=== PATIENT | male | born 1940 | race Caucasian/White ===

== ENCOUNTER → 2019-07-15 08:32 | Outpatient (CLI) | payer MEDICARE, SELFPAY ==
--- NOTE | 2019-07-15 | DI.MRI.S_ITS ---
PROCEDURE: MR BRAIN (IAC) WWO CON INDICATIONS: unspec sensorineural hearing loss TECHNIQUE: Noncontrast sagittal T1 spin echo, axial FLAIR, axial gradient echo, axial diffusion and ADC through the brain. Axial thin-slice 3D CISS, coronal TruFISP, axial T1 spin echo with fat saturation through the internal auditory canals. After the administration of contrast, thin slice axial and coronal T1 spin echo with fat saturation through the internal auditory canals, and axial T1 spin echo with fat saturation through the brain. COMPARISON: None. FINDINGS: Image quality: Excellent. Cerebellopontine angles: No cerebellopontine angle masses. Inner ear structures appear normally formed. No suspicious enhancement in the internal auditory canal or along the course of the 7th cranial nerve. CSF spaces: Ventricles are normal in size and shape. No extra-axial fluid collections. Basal cisterns are patent. Brain: No intracranial bleeds or mass effects. Kline-white matter interface is intact. No abnormal intracranial enhancement. Diffusion weighted images demonstrate no acute ischemic insults. Kline-white low volume loss can be seen. Scattered foci of T2 weighted hyperintensity are seen within the white matter, which are attributed to age appropriate chronic small vessel ischemic change. Brainstem appears normal. Normal intravascular flow voids are present. Skull and face: Calvarial marrow signal is normal. Orbits appear normal. Sinuses: Sinuses and mastoids are clear. IMPRESSION: No significant abnormality is seen. Specifically, no masses or abnormal enhancement are seen within the cerebellopontine angle cisterns or within the internal auditory canals. Note is made of age-appropriate brain parenchymal volume loss and chronic small vessel ischemic changes. No findings of acute or subacute infarction can be seen. Dictated by: Pete Dos Santos M.D. on 07/15/2019 at 11:00 Approved by: Pete Dos Santos M.D. on 07/15/2019 at 11:05
== END ==
PROVIDERS: Family Provider Podiatrist; PCP Internal Medicine; Visit Provider Otolaryngology
DX: H90.5 Unspecified sensorineural hearing loss (principal); H93.13 Tinnitus, bilateral
CPT/HCPCS: 70553; A9579

== ENCOUNTER → 2020-02-18 09:13 | Outpatient (CLI) | payer MEDICARE, SELFPAY ==
--- NOTE | 2020-02-18 | DI.CT.S_ITS ---
PROCEDURE: CT ABDOMEN PELVIS WO/W CON INDICATIONS: LOWER ABDOMINAL PAIN TECHNIQUE: Optional 5 mm thick noncontrast images acquired from the diaphragm to the symphysis pubis. After the administration of intravenous contrast, 5 mm thick images acquired from the diaphragm to the symphysis pubis after a 10-minute delay. 2 mm thick coronal and sagittal reformats were then performed of the kidneys and ureters. For radiation dose reduction, the following was used: automated exposure control, adjustment of mA and/or kV according to patient size. COMPARISON: None. FINDINGS: Image quality: Excellent. Lung bases: Lung bases are clear. Heart size is normal. A small hiatal hernia is incidentally noted. Urinary system: Both kidneys are normal in size, without hydronephrosis or nephrolithiasis on pre-contrast images. No perinephric fat stranding. There is normal bilateral renal enhancement. Nonenhancing bilateral renal cysts are seen, several of which are hyperdense cysts. Renal calyces appear normal in morphology when filled with contrast. Opacified portions of both ureters demonstrate normal caliber. Bladder wall thickness is normal. No calcified bladder stones. Other solid organs: Liver is normal in size and enhancement. Gallbladder wall does not appear thickened. Biliary system is non dilated. Pancreas enhances normally. Spleen is normal in size and enhancement. No adrenal nodules. Peritoneum and bowel: Bowel loops demonstrate normal wall thickness and caliber. No free fluid or air. No significant diverticulosis is seen. No lower colonic inflammatory change can be seen. Nodes and vessels: No retroperitoneal or mesenteric adenopathy by size criteria. Aorta and inferior vena cava are normal in size. Incidental note is made of a retroaortic left renal vein. Abdominal wall: No ventral hernias. Pelvis: No pathologic free pelvic fluid. No inguinal adenopathy. Mild fat-containing bilateral inguinal hernias are seen. Bones: No suspicious bony lesions. No vertebral body compression fractures. Focal L4-L5 and L5-S1 degenerative change is seen. Milder degenerative changes are seen elsewhere. Mild dextroconvex scoliotic curvature is seen. IMPRESSION: No imaging explanation is found for this patient's presenting symptoms. Incidental note is made of: Small hiatal hernia Nonenhancing bilateral renal cysts Mild fat-containing bilateral inguinal hernias Focal L4-L5 and L5-S1 degenerative change is seen. Dictated by: Pete Dos Santos M.D. on 02/18/2020 at 9:40 Approved by: Pete Dos Santos M.D. on 02/18/2020 at 9:45
[2020-02-18 09:43] LABS: BUN Creatinine Ratio 19.7 (6-22); Blood Urea Nitrogen 13 mg/dL (9-20); Estimated Glomerular Filt Rate > 60.0 mL/min (>60)
== END ==
PROVIDERS: Family Provider Podiatrist; PCP Internal Medicine; Referring Provider Physician Assistant Medical; Visit Provider Physician Assistant Medical
DX: R10.30 Lower abdominal pain, unspecified (principal); K44.9 Diaphragmatic hernia without obstruction or gangrene; N28.1 Cyst of kidney, acquired; K40.20 Bilateral inguinal hernia, without obstruction or gangrene, not specified as recurrent; M47.816 Spondylosis without myelopathy or radiculopathy, lumbar region; M47.817 Spondylosis without myelopathy or radiculopathy, lumbosacral region
CPT/HCPCS: 36415; 74178; 82565; 84520; Q9967

== ENCOUNTER 2022-10-29 12:40 | Emergency (ER) | payer MEDICARE, SELFPAY ==
[2022-10-29 12:53] VITALS: BP 131/63; PULSE 55; RESP 18; TEMP 36.9; O2SAT 98; BMI 22.8
[2022-10-29 17:12] VITALS: BP 152/73; PULSE 57; RESP 16; TEMP 36.1; O2SAT 100
--- NOTE | 2022-10-29 17:12 | PC.NURSE ---
Patient reports symptoms he was experiencing were resolved prior to arrival but was concerned how quickly I got over it.
== END 2022-10-29 17:16 | disposition left against medical advice (07) ==
PROVIDERS: Emergency Provider Emergency Medicine; Family Provider Podiatrist; PCP Internal Medicine
CPT/HCPCS: 99281

== ENCOUNTER → 2024-05-17 16:38 | Outpatient (CLI) | payer MEDICARE, SELFPAY ==
--- NOTE | 2024-05-17 16:40 | DI.MRI.S_ITS ---
PROCEDURE: MR LUMBAR SPINE WO/W CON INDICATIONS: Low back pain, unspecified TECHNIQUE: Noncontrast sagittal T1 spin echo and T2 fast echo, sagittal STIR, and T2 fast spin echo through the lumbar spine. In cases with scoliosis, additional coronal T2 fast spin echo may be performed. COMPARISON: None. FINDINGS: Image quality: Excellent. Alignment and Curvature: There is trace retrolisthesis of L5-S1. Bone Marrow: Marrow is of normal overall signal. Moderate reactive endplate changes are L2-3 and L5-S1 No acute vertebral body compression fractures. Spinal Cord: Conus medullaris terminates at the L1 level. Visualized cord demonstrates normal signal and size. Paraspinous Soft Tissues: No paravertebral masses. Simple left renal cyst. Discs: Multilevel disc desiccation is present most severe at L5-S1. T12-L1: No disc bulge, spinal stenosis or foraminal narrowing. L1-L2: No disc bulge, spinal stenosis or foraminal narrowing. L2-L3: Minimal disc bulge without spinal stenosis or foraminal narrowing. Mild facet and ligamentum flavum hypertrophy. L3-L4: No disc bulge, spinal stenosis or foraminal narrowing. Facet and ligamentum flavum hypertrophy are present mild foraminal narrowing. L4-L5: Minimal disc bulge without spinal stenosis. Moderate left and mild right foraminal narrowing with facet and ligamentum flavum hypertrophy. L5-S1: Mild disc bulge without spinal stenosis. Moderate to severe right foraminal narrowing with facet and ligamentum flavum hypertrophy. IMPRESSION: Multilevel disc bulges. Multilevel foraminal narrowing most severe at L5-S1. Dictated by: Janey Vargas M.D. on 05/20/2024 at 22:45 Approved by: Janey Vargas M.D. on 05/20/2024 at 22:48
== END ==
PROVIDERS: Family Provider Podiatrist; PCP Internal Medicine; Referring Provider Family Medicine; Visit Provider Family Medicine
DX: M51.37 Other intervertebral disc degeneration, lumbosacral region (principal); M48.07 Spinal stenosis, lumbosacral region; M54.50 Low back pain, unspecified
CPT/HCPCS: 72158; A9579

== ENCOUNTER → 2024-05-27 08:14 | Outpatient (CLI) | payer MEDICARE, SELFPAY ==
--- NOTE | 2024-05-27 09:00 | DI.MRI.S_ITS ---
PROCEDURE: MR ANKLE LT WO CON INDICATIONS: PTS ARTHRITIS OF RT ANKL,STRESS REACTION OF BONE TECHNIQUE: Noncontrast sagittal T1 spin echo and T2 fast spin echo with fat saturation, axial proton density fast spin echo and T2 fast spin echo with fat saturation, coronal T1 spin echo and T2 fast spin echo with fat saturation through the ankle/hindfoot. COMPARISON: [facility], CR, XR ANKLE 3 VIEWS WEIGHT BEARING BILATERAL, 05/14/2024, 8:49. FINDINGS: Image quality: Excellent Tendons: Mild tenosynovitis of the posterior tibialis. The flexor digitorum longus and the flexor hallucis longus are unremarkable. The extensor tendons, are unremarkable. Longitudinal split tear of the peroneal brevis. The peroneal longus is unremarkable. Mild tendinosis of the distal Achilles tendon, without tear. Marked edema within the Kager's fat pad. Ligaments: Mild thickening of the anterior tibiofibular ligament, representing prior sprain. The posterior tibiofibular ligament is intact. The anterior talofibular ligament is extremely diminutive, likely representing prior high-grade tear. The posterior talofibular ligament is intact. The calcaneofibular ligament is not well visualized. The deep portion of the deltoid ligament is unremarkable. Sinus tarsi: No fibrosis. Plantar fascia: Mild thickening of the central cord, concerning for plantar fasciitis. Muscles: Normal in signal Bones: No marrow edema. No osteochondral lesion. No acute fracture. Small posterior calcaneal enthesophyte. No significant tibiotalar effusion. Small amount of fluid in the posterior subtalar recess. IMPRESSION: 1. Longitudinal split tear of the peroneal brevis. 2. Mild tendinosis distal Achilles tendon with marked Kager's fat pad edema. 3. High-grade tear of the anterior talofibular ligament. 4. Findings concerning for plantar fasciitis. 5. No acute fracture. No significant degenerative changes. Dictated by: Alisia Rodriguez M.D. on 05/27/2024 at 11:23 Approved by: Alisia Rodriguez M.D. on 05/27/2024 at 11:34
--- NOTE | 2024-05-27 09:00 | DI.MRI.S_ITS ---
PROCEDURE: MR ANKLE RT WO CON INDICATIONS: PTS ARTHRITIS OF RT ANKL,STRESS REACTION OF BONE TECHNIQUE: Noncontrast sagittal T1 spin echo and T2 fast spin echo with fat saturation, axial proton density fast spin echo and T2 fast spin echo with fat saturation, coronal T1 spin echo and T2 fast spin echo with fat saturation through the ankle/hindfoot. COMPARISON: [facility], MR, ANKLE WITHOUT CONTRAST, 08/29/2017, 13:44. [facility], MR, LOW.EXTREM NO JOINT WO CONTRAS, 09/27/2017, 12:19. [facility], MR, MR ANKLE LT WO CON, 05/27/2024, 8:24. FINDINGS: Image quality: Excellent Tendons: Trace tenosynovitis of the posterior tibialis. The flexor digitorum longus, and the flexor hallucis longus are unremarkable. Mild tenosynovitis of the anterior tibialis, at the level of the tibial plafond. The extensor digitorum longus and the extensor hallucis longus are unremarkable. The peroneal tendons are unremarkable. Mild tendinosis of the distal Achilles tendon, without tear. Marked Kager's fat pad edema. Ligaments: Thinning of the anterior tibiofibular ligament, representing prior sprain. The posterior tibiofibular ligament is intact. The anterior talofibular ligament and the posterior talofibular ligament are intact. The calcaneofibular ligament is not well visualized. Mild sprain of the deep portion of the deltoid ligament. Sinus tarsi: No fibrosis. Plantar fascia: Mild thickening of the central cord, concerning for plantar fasciitis. Muscles: Normal in signal Bones: Susceptibility artifact about the distal fibula, representing postprocedural changes. Healed fracture of the distal fibula diaphysis. Moderate degenerative changes of the tibiotalar joint with improved multifocal subchondral marrow edema and increased subchondral cystic changes. No osteochondral lesion of the talus dome. Again seen is mild subchondral marrow edema of the proximal navicular bone with overlying articular surface incongruity, measuring 6 millimeter, likely representing an osteochondral lesion. No acute fracture. IMPRESSION: 1. Mild tendinosis distal Achilles tendon with marked Kager's fat pad edema. 2. Sprain of the medial and lateral ankle ligament. 3. Healed distal fibular diaphysis fracture with associated postprocedural changes. 4. Moderate degenerative change of the tibiotalar joint within improved multifocal subchondral marrow edema, but increased subchondral cystic changes. 5. 6 millimeter osteochondral lesion with marrow edema and articular surface incongruity in the proximal navicular bone, unchanged from prior exam. Dictated by: Alisia Rodriguez M.D. on 05/27/2024 at 11:34 Approved by: Alisia Rodriguez M.D. on 05/27/2024 at 11:45
== END ==
PROVIDERS: Family Provider Podiatrist; PCP Internal Medicine; Referring Provider Orthopaedic Surgery Foot and Ankle Surgery; Visit Provider Orthopaedic Surgery Foot and Ankle Surgery
DX: M84.30XA Stress fracture, unspecified site, initial encounter for fracture (principal); S96.812A Strain of other specified muscles and tendons at ankle and foot level, left foot, initial encounter; S93.492A Sprain of other ligament of left ankle, initial encounter; M65.862 Other synovitis and tenosynovitis, left lower leg; M77.32 Calcaneal spur, left foot; S93.491A Sprain of other ligament of right ankle, initial encounter; M19.171 Post-traumatic osteoarthritis, right ankle and foot; M89.9 Disorder of bone, unspecified; Z87.81 Personal history of (healed) traumatic fracture
CPT/HCPCS: 73721

== ENCOUNTER → 2024-08-14 08:24 | Outpatient (CLI) | payer OTHER, SELFPAY ==
--- NOTE | 2024-08-14 | DI.ECHO.S_ITS ---
[facility]+ [facility] : : [address] : : [place] : : [id number] : : Phone: [phone] Echocardiogram Report + + :Name: ENRIQUE FORTE Study Date: 08/14/2024 Height: 69 in : :Hospital ReadingLocation: Weight: 145 lb : : Gender: Male BSA: 1.8 m2 : :: 1940 Age: 83 yrs BP: 100/61 mmHg: :Reason For Study: CARDIOMYOPATHY, HISTORY SEVERE TR, MODERATE : :MR : :Ordering Physician: JELENA, : :PA Performed By: Lucy Long : :Referring: PA BOWLES : + + Interpretation Summary The left ventricle is normal in size and wall thickness. Left ventricular systolic function is mildly reduced. The ejection fraction is estimated to be 40-45%. The right ventricle is normal size. Right ventricular systolic function is mild to moderately reduced. The right ventricular systolic pressure is estimated to be at least 36 mmHg based on an estimated right atrial pressure of 8 mm Hg. The left atrium is severely dilated. The right atrium is moderately dilated. There is mild to moderate mitral regurgitation. There is mild aortic regurgitation. The peak aortic velocity is 2.7 m/sec. There is moderate tricuspid regurgitation. The ascending aorta is mildly enlarged. Procedure: A two-dimensional transthoracic echocardiogram with color flow and Doppler was performed. The study quality was technically adequate. There is no prior echocardiogram noted for this patient. The patient had occasional PVCs during the exam. The patient was in atrial fibrillation with heart rates between 54-70 bpm during the exam. Left Ventricle: The left ventricle is normal in size and wall thickness. Left ventricular systolic function is mildly reduced. The ejection fraction is estimated to be 40-45%. There is mild global hypokinesis of the left ventricle. Diastolic function could not be accurately assessed due to atrial fibrillation. Right Ventricle: The right ventricle is normal size. Right ventricular systolic function is mild to moderately reduced. Atria: The left atrium is severely dilated. The right atrium is moderately dilated. There is no Doppler evidence for an interatrial shunt. Mitral Valve: The mitral valve leaflets appear to open well. There is mild to moderate mitral regurgitation. Aortic Valve: The aortic valve is trileaflet. The aortic valve is mildly calcified. The peak aortic velocity is 2.7 m/sec. The aortic valve mean gradient is 17 mmHg. There is mild aortic regurgitation. Tricuspid Valve: The tricuspid valve leaflets are thin and pliable. There is moderate tricuspid regurgitation. The right ventricular systolic pressure is estimated to be at least 36 mmHg based on an estimated right atrial pressure of 8 mm Hg. Pulmonic Valve: The pulmonic valve leaflets are thin and pliable; valve motion is normal. There is mild pulmonic regurgitation. Great Vessels: The aortic root is normal size. The ascending aorta is mildly enlarged. The IVC is dilated (diameter is greater than 2.1 cm) yet it collapses greater than 50% with a sniff. This suggests a right atrial pressure of 8 mm Hg. Pericardium/ Pleura There is no pericardial effusion. There is no pleural effusion. MMode/2D Measurements & Calculations LVIDd: 4.9 cm LVOT diam: 2.1 cm LVIDs: 3.8 cm Ao root diam: 3.4 cm FS: 22.1 % asc Aorta Diam: 3.7 cm EPSS: 1.0 cm Ao Arch Diam (Prox Trans): 2.6 cm IVSd: 1.2 cm LVPWd: 0.96 cm LV vargas. diameter/BSA (cm/m^2): 2.7 LV sys. diameter/BSA (cm/m^2): 2.1 LA A2 area: 29.4 cm2 RA long axis: 6.3 cm LA A4 area: 23.0 cm2 RA area: 24.0 cm2 LA length (vol): 6.3 cm RA vol: 77.5 ml LA vol: 91.1 ml RA : 43.0 ml/m2 LA vol index: 50.5 ml/m2 IVC diam: 2.4 cm RVD1 (basal): 3.3 cm RVD2 (mid): 2.5 cm TAPSE: 1.6 cm Doppler Measurements & Calculations Ao V2 max: 274.5 cm/sec LVOT Max Jc: 68.6 cm/sec Ao V2 mean: 183.2 cm/sec LV V1 max P.9 mmHg Ao max P.1 mmHg LV V1 VTI: 15.8 cm Ao mean P.0 mmHg DEEJAY(I,D): 0.91 cm2 Ao V2 VTI: 59.0 cm DEEJAY(V,D): 0.85 cm2 sev ratio: 0.27 DEEJAY indexed to BSA (cm^2/m^2): 0.51 AI P1/2t: 723.2 msec AI dec slope: 173.7 cm/sec2 MV E max jc: 72.3 cm/sec TR max jc: 265.7 cm/sec MV A max jc: 1.2 cm/sec TR max P.2 mmHg MV E/A: 61.1 PA V2 max: 84.0 cm/sec Med Peak E' Jc: 8.2 cm/sec PA V2 mean: 55.1 cm/sec E/E' med: 8.8 PA mean P.4 mmHg Lat Peak E' Jc: 13.8 cm/sec PA pr(Accel): 51.6 mmHg E/E' lat: 5.2 E/e' average: 7.0 MV dec time: 0.23 sec MR ERO: 0.09 cm2 MR PISA: 1.3 cm2 SV(LVOT): 53.9 ml MR flow rate: 46.4 cm3/sec MR PISA radius: 0.46 cm Reading Physician:[id number] PM
== END ==
PROVIDERS: Family Provider Podiatrist; PCP Internal Medicine; Referring Provider Family Medicine; Visit Provider Family Medicine
DX: I42.9 Cardiomyopathy, unspecified (principal); I08.3 Combined rheumatic disorders of mitral, aortic and tricuspid valves
CPT/HCPCS: 93306